=== PATIENT | female | born 1975 | race American Indian/Alaskan Native ===

== ENCOUNTER 2017-04-26 18:14 | Emergency (ER) | payer SELFPAY ==
[2017-04-26] MEDS ORDERED: TYLENOL #3 PO ONE (22:41)
[2017-04-26] MEDS ORDERED: TORADOL IM ONE (22:41)
--- NOTE | 2017-04-26 23:58 | Emergency Department Report ---
ED ENT HPI - General Chief complaint: Dental/Oral Stated complaint: SWOLLEN MOUTH, PAIN IN NECK Source: patient Mode of arrival: Ambulatory Limitations: No Limitations - History of Present Illness Initial comments: 42 year old female presents to ED with left sided jaw/tooth pain x 2-3 days. patient is stable, neurologically intact and in no acute distress. patient denies history of DM. patient states LMP was yesterday 04/25/2017. MD complaint: tooth pain -: Sudden, days(s) (3) 1 - dental pain Severity: mild Quality: sharp Consistency: constant Worsens with: eating Context- Dental: poor dental care Associated Symptoms: gum swelling, toothache. denies: fever, cough, pain with swallowing, sore throat - Related Data Previous Rx's Medication Instructions Recorded Last Taken Type ALPRAZolam [Xanax TAB] 0.5 mg PO Q8H PRN #20 tablet 05/18/13 Unknown Rx Famotidine [Pepcid] 20 mg PO BID #40 tablet 09/09/15 Unknown Rx Ferrous Sulfate [Feosol] 325 mg PO BID #90 tablet 09/09/15 Unknown Rx Meclizine [Antivert] 25 mg PO TID PRN #20 tablet 09/09/15 Unknown Rx Promethazine [Phenergan TAB] 25 mg PO Q6HR PRN #20 tab 09/09/15 Unknown Rx Amoxicillin 500 mg PO BID #14 capsule 04/26/17 Unknown Rx Naproxen [Naprosyn] 500 mg PO BID #14 tablet 04/26/17 Unknown Rx Allergies Allergy/AdvReac Type Severity Reaction Status Date / Time hydrocodone [Hydrocodone] AdvReac Dizziness Verified 05/16/13 19:22 ED Dental HPI - General Chief complaint: Dental/Oral Stated complaint: SWOLLEN MOUTH, PAIN IN NECK, AND BUMP ON RECTUM Source: patient Mode of arrival: Ambulatory Limitations: No Limitations - Related Data Previous Rx's Medication Instructions Recorded Last Taken Type ALPRAZolam [Xanax TAB] 0.5 mg PO Q8H PRN #20 tablet 05/18/13 Unknown Rx Famotidine [Pepcid] 20 mg PO BID #40 tablet 09/09/15 Unknown Rx Ferrous Sulfate [Feosol] 325 mg PO BID #90 tablet 09/09/15 Unknown Rx Meclizine [Antivert] 25 mg PO TID PRN #20 tablet 09/09/15 Unknown Rx Promethazine [Phenergan TAB] 25 mg PO Q6HR PRN #20 tab 09/09/15 Unknown Rx Amoxicillin 500 mg PO BID #14 capsule 04/26/17 Unknown Rx Naproxen [Naprosyn] 500 mg PO BID #14 tablet 04/26/17 Unknown Rx Allergies Allergy/AdvReac Type Severity Reaction Status Date / Time hydrocodone [Hydrocodone] AdvReac Dizziness Verified 05/16/13 19:22 ED Review of Systems ROS: Stated complaint: SWOLLEN MOUTH, PAIN IN NECK, AND BUMP ON RECTUM Other details as noted in HPI Constitutional: denies: chills, fever Eyes: denies: eye pain, eye discharge, vision change ENT: dental pain. denies: ear pain, throat pain Respiratory: denies: cough, shortness of breath, wheezing Cardiovascular: denies: chest pain, palpitations Endocrine: no symptoms reported Gastrointestinal: denies: abdominal pain, nausea, diarrhea Genitourinary: denies: urgency, dysuria, discharge Musculoskeletal: denies: back pain, joint swelling, arthralgia Skin: denies: rash, lesions Neurological: denies: headache, weakness, numbness, paresthesias, confusion, abnormal gait, vertigo Psychiatric: denies: anxiety, depression Hematological/Lymphatic: denies: easy bleeding, easy bruising ED Past Medical Hx - Past Medical History Previous Medical History?: Yes Hx Hypertension: Yes Additional medical history: fibroids - Surgical History Past Surgical History?: Yes Additional Surgical History: section x4 - Social History Smoking Status: Current Every Day Smoker Substance Use Type: Alcohol - Medications Home Medications: Home Medications Medication Instructions Recorded Confirmed Last Taken Type ALPRAZolam [Xanax TAB] 0.5 mg PO Q8H PRN #20 tablet 05/18/13 Unknown Rx Famotidine [Pepcid] 20 mg PO BID #40 tablet 09/09/15 Unknown Rx Ferrous Sulfate [Feosol] 325 mg PO BID #90 tablet 09/09/15 Unknown Rx Meclizine [Antivert] 25 mg PO TID PRN #20 tablet 09/09/15 Unknown Rx Promethazine [Phenergan TAB] 25 mg PO Q6HR PRN #20 tab 09/09/15 Unknown Rx Amoxicillin 500 mg PO BID #14 capsule 04/26/17 Unknown Rx Naproxen [Naprosyn] 500 mg PO BID #14 tablet 04/26/17 Unknown Rx ED Physical Exam - General Limitations: No Limitations General appearance: alert, in no apparent distress - Head Head exam: Present: atraumatic, normocephalic - Eye Eye exam: Present: normal appearance - ENT ENT exam: Present: mucous membranes moist, other (dental caries present in left lower teeth with mild gum swelling. no abscess present, mild tenderness to left jaw) - Neck Neck exam: Present: normal inspection. Absent: lymphadenopathy - Respiratory Respiratory exam: Present: normal lung sounds bilaterally. Absent: respiratory distress, wheezes, rales, rhonchi - Cardiovascular Cardiovascular Exam: Present: regular rate, normal rhythm. Absent: systolic murmur, diastolic murmur, rubs, gallop - GI/Abdominal GI/Abdominal exam: Present: soft, normal bowel sounds. Absent: distended, tenderness, guarding - Extremities Exam Extremities exam: Present: normal inspection, full ROM - Back Exam Back exam: Present: normal inspection, full ROM - Neurological Exam Neurological exam: Present: alert, oriented X3, normal gait - Psychiatric Psychiatric exam: Present: normal affect, normal mood - Skin Skin exam: Present: warm, dry, intact, normal color. Absent: rash ED Course Vital Signs 04/26/17 04/26/17 04/26/17 18:52 21:40 23:02 Temperature 98.3 F 98.7 F Pulse Rate 86 77 Respiratory 20 18 18 Rate Blood Pressure 157/103 Blood Pressure 166/100 [Left] O2 Sat by Pulse 100 100 Oximetry 04/26/17 04/27/17 23:03 00:11 Temperature Pulse Rate 72 Respiratory 18 18 Rate Blood Pressure Blood Pressure 147/88 [Left] O2 Sat by Pulse 98 Oximetry ED Medical Decision Making - Medical Decision Making 42 year old female presents to ED with left sided jaw pain x2-3 days. patient has decreased pain after medication during ED visit. patient will be referred to [facility] dental [facility] and given RX for PO antibiotics and NSAIDS. patient is stable, neurologically intact and in no acute distress. Critical care attestation.: If time is entered above; I have spent that time in minutes in the direct care of this critically ill patient, excluding procedure time. ED Disposition Clinical Impression: Pain, dental, Dental caries, Gingivitis Disposition: TO HOME OR SELFCARE Is pt being admited?: No Does the pt Need Aspirin: No Condition: Stable Instructions: Dental Caries (ED), Toothache (ED) Prescriptions: Amoxicillin 500 mg PO BID #14 capsule Naproxen [Naprosyn] 500 mg PO BID #14 tablet Referrals: [facility] [Outside] - 2-3 Days PRIMARY CARE,MD [Primary Care Provider] - 3-5 Days Forms: Work/School Release Form(ED)
[2017-04-27 00:12] VITALS: BP 147/88
== END 2017-04-27 00:11 | disposition home or self-care (01) ==
LOC: ED 18:14
DX: K02.9 Dental caries, unspecified (principal); K05.10 Chronic gingivitis, plaque induced; I10 Essential (primary) hypertension; F17.210 Nicotine dependence, cigarettes, uncomplicated; Z88.6 Allergy status to analgesic agent
CPT/HCPCS: 96372; 99282; J1885

== ENCOUNTER 2017-11-08 02:35 | Emergency (ER) | payer MEDICAID ==
[2017-11-08 03:24] LABS: Basophils % (Auto) 0.3 % (0.0-1.8); Eosinophils # (Auto) 0.3 K/mm3 (0.0-0.4); Eosinophils % (Auto) 2.9 % (0.0-4.3); Hemoglobin 8.6 gm/dl (10.1-14.3); Lymphocytes # (Auto) 3.4 K/mm3 (1.2-5.4); Lymphocytes % (Auto) 28.7 % (13.4-35.0); Mean Corpuscular HGB Conc 30 % (30-34); Mean Corpuscular Hemoglobin 20 pg (28-32); Mean Corpuscular Volume 68 fl (79-97); Monocytes # (Auto) 0.7 K/mm3 (0.0-0.8); Monocytes % (Auto) 5.6 % (0.0-7.3); Platelet Count 443 K/mm3 (140-440); Red Blood Count 4.26 M/mm3 (3.65-5.03); Red Cell Distribution Width 21.1 % (13.2-15.2)
[2017-11-08 03:31] LABS: Bilirubin,Urine NEG (Negative); Blood,Urine LG (Negative); Color,Urine Red (Yellow); Mucus,Urine 1+ /HPF; Urobilinogen,Urine < 2.0 mg/dL (<2.0)
[2017-11-08 03:33] LABS: RBC,Urine > 182.0 /HPF (0.0-6.0)
[2017-11-08 03:40] LABS: Albumin 3.7 g/dL (3.9-5); Calcium 8.5 mg/dL (8.4-10.2)
[2017-11-08] MEDS ORDERED: ANTIVERT PO ONE (06:22)
[2017-11-08] MEDS ORDERED: MACROBID PO ONE (06:22)
--- NOTE | 2017-11-08 06:53 | XRay Report ---
FINAL REPORT EXAM: XR ABDOMEN 2V HISTORY: Abd pain TECHNIQUE: Three views of the abdomen pelvis were obtained. FINDINGS: The bowel gas pattern is normal. There are phleboliths in the pelvis. The lung bases are clear. The bones and soft tissues otherwise well maintained. IMPRESSION: No acute process identified.
--- NOTE | 2017-11-08 06:59 | Cat Scan Report ---
FINAL REPORT EXAM: CT HEAD/BRAIN WO CON HISTORY: dizziness TECHNIQUE: Routine axial imaging was obtained of the brain without IV contrast. Comparison is made to the study 01/16/2013. FINDINGS: There is no evidence of acute stroke or hemorrhage. The ventricular system is appropriate in size and is symmetric. The basal cisterns appear normal. The visualized sinuses are clear. The mastoid air cells are well pneumatized IMPRESSION: Within normal limits.
--- NOTE | 2017-11-08 07:05 | Emergency Department Report ---
HPI - General Chief Complaint: Abdominal Pain Time Seen by Provider: 11/08/17 06:09 - HPI HPI: 42-year-old female presents to the emergency department with a few different complaints. The patient says that she's been having some nonspecific lightheadedness and vertigo like symptoms over the past 3 weeks. She denies any facial asymmetry, slurred speech, vision change, headache or any other neurological deficits. She also complains of acute on chronic generalized abdominal pain. She says that this would be the third visit to the emergency department for her abdominal pain. She denies any problems with bowel or bladder, vaginal bleeding or discharge or dysuria. She has not taken anything for her symptoms prior presentation. She does have a history of anemia but is unsure of the source of the anemia and denies any bleeding. Her primary care physician is through [facility] and she says that she saw them regarding the lightheadedness and weakness and says that the PCP associated with her anemia. No recent travel or sick contacts at home. She has a past medical history of hypertension, fibroids. ED Past Medical Hx - Past Medical History Hx Hypertension: Yes Additional medical history: fibroids, MORBID OBESITY - Surgical History Additional Surgical History: section x4, TUBAL LIGATION - Social History Smoking Status: Current Every Day Smoker Substance Use Type: None - Medications Home Medications: Home Medications Medication Instructions Recorded Confirmed Last Taken Type ALPRAZolam [Xanax TAB] 0.5 mg PO Q8H PRN #20 tablet 05/18/13 Unknown Rx Famotidine [Pepcid] 20 mg PO BID #40 tablet 09/09/15 Unknown Rx Ferrous Sulfate [Feosol] 325 mg PO BID #90 tablet 09/09/15 Unknown Rx Promethazine [Phenergan TAB] 25 mg PO Q6HR PRN #20 tab 09/09/15 Unknown Rx Amoxicillin 500 mg PO BID #14 capsule 04/26/17 Unknown Rx Naproxen [Naprosyn] 500 mg PO BID #14 tablet 04/26/17 Unknown Rx Meclizine [Antivert] 25 mg PO TID PRN #20 tablet 11/08/17 Unknown Rx Nitrofurantoin Monohyd/M-Cryst 100 mg PO BID #14 capsule 11/08/17 Unknown Rx [Macrobid 100 mg Capsule] ED Review of Systems ROS: Stated complaint: ABD PAIN Other details as noted in HPI Comment: All other systems reviewed and negative Constitutional: weakness. denies: fever Eyes: denies: eye pain, eye discharge, vision change ENT: denies: ear pain, throat pain Respiratory: denies: cough, shortness of breath, wheezing Cardiovascular: denies: chest pain, palpitations Gastrointestinal: abdominal pain. denies: vomiting Genitourinary: denies: urgency, dysuria, discharge Musculoskeletal: denies: back pain, joint swelling, arthralgia Skin: denies: rash, lesions Neurological: vertigo, other (dizziness). denies: headache Physical Exam - Physical Exam Vital Signs: Vital Signs 11/08/17 11/08/17 02:38 05:59 Temperature 98.2 F Pulse Rate 89 77 Respiratory 18 16 Rate Blood Pressure 141/89 Blood Pressure 141/88 [Left] O2 Sat by Pulse 99 99 Oximetry Physical Exam: GENERAL: The patient is well-developed well-nourished. HENT: Normocephalic. Atraumatic. Patient has moist mucous membranes. EYES: Extraocular motions are intact. Pupils equal reactive to light bilaterally. There is fatigable horizontal nystagmus. NECK: Supple. Trachea is midline. CHEST/LUNGS: Clear to auscultation. There is no respiratory distress noted. HEART/CARDIOVASCULAR: Regular. There is no tachycardia. There is no murmur. ABDOMEN: Abdomen is soft. Abdominal pain is not reproducible to palpation. Patient has normal bowel sounds. There is no abdominal distention. SKIN: Skin is warm and dry. NEURO: The patient is awake, alert, and oriented. The patient is cooperative. The patient has no focal neurologic deficits. The patient has normal speech and gait. Cranial nerves II through XII grossly intact. MUSCULOSKELETAL: There is no tenderness or deformity. There is no limitation range of motion. There is no evidence of acute injury. ED Course Vital Signs 11/08/17 11/08/17 02:38 05:59 Temperature 98.2 F Pulse Rate 89 77 Respiratory 18 16 Rate Blood Pressure 141/89 Blood Pressure 141/88 [Left] O2 Sat by Pulse 99 99 Oximetry ED Medical Decision Making - Lab Data Result diagrams: 11/08/17 02:54 11/08/17 02:54 - EKG Data -: EKG Interpreted by Me EKG shows normal: sinus rhythm, axis, intervals, QRS complexes, ST-T waves Rate: normal - EKG Data When compared to previous EKG there are: previous EKG unavailable Interpretation: normal EKG - Radiology Data Radiology results: report reviewed, image reviewed interpreted by me: Abdominal x-ray shows nonspecific nonobstructive bowel gas. EXAM: CT HEAD/BRAIN WO CON HISTORY: dizziness TECHNIQUE: Routine axial imaging was obtained of the brain without IV contrast. Comparison is made to the study 01/16/2013. FINDINGS: There is no evidence of acute stroke or hemorrhage. The ventricular system is appropriate in size and is symmetric. The basal cisterns appear normal. The visualized sinuses are clear. The mastoid air cells are well pneumatized IMPRESSION: Within normal limits. Transcribed By: RB Dictated By: IMTIAZ CARLSON MD Electronically Authenticated By: IMTIAZ CARLSON MD Signed Date/Time: 11/08/17 0655 - Medical Decision Making Patient's labs show a very mild urinary tract infection, anemia with hemoglobin of 8.2. On physical exam the patient does not have any focal, motor or sensory deficits in her cranial nerves are intact. Abdominal x-ray shows nonspecific nonobstructive bowel gas. CT of the head without contrast does not show any bleed, shift, mass or any other acute process. The patient was given a Macrobid for her urinary tract infection and a meclizine for her vertigo. EKG is not showing any signs of ST elevation NC or dysrhythmia. The patient was reevaluated multiple times over multiple hours and is feeling improved. Prior to discharge, she was seen ambulatory in the emergency department and appears stable and says that her dizziness has resolved. Patient per se for discharge home at this time. She has good follow-up with primary care and was given a referral for gastroenterology. She will return to the ER with any worsening of her symptoms or any acute distress. - Differential Diagnosis vertigo, TIA, hypoglycemia, hypothyroidism, dysrhythmia Critical Care Time: No Critical care attestation.: If time is entered above; I have spent that time in minutes in the direct care of this critically ill patient, excluding procedure time. ED Disposition Clinical Impression: Dizziness, Vertigo UTI (urinary tract infection) Qualifiers: Urinary tract infection type: acute cystitis Hematuria presence: without hematuria Qualified Code(s): N30.00 - Acute cystitis without hematuria Abdominal pain Qualifiers: Abdominal location: generalized Qualified Code(s): R10.84 - Generalized abdominal pain Disposition: TO HOME OR SELFCARE Is pt being admited?: No Condition: Stable Instructions: Urinary Tract Infection in Women (ED), Vertigo (ED), Abdominal Pain (ED), Dizziness (ED) Additional Instructions: Please follow up with your primary care physician in the next few days. I have given you a referral for a local crew team member, Dr. Shields, to follow up regarding your recurring abdominal pains. Take the antibiotics as prescribed. I have also prescribed you a medication, meclizine/Antivert, to be taken as needed for vertigo symptoms. Return to the emergency Department with any worsening of your symptoms or any acute distress. Prescriptions: Meclizine [Antivert] 25 mg PO TID PRN #20 tablet PRN Reason: Vertigo Nitrofurantoin Monohyd/M-Cryst [Macrobid 100 mg Capsule] 100 mg PO BID #14 capsule Referrals: PRIMARY CARE, [Primary Care Provider] - 3-5 Days BENITO SHIELDS MD [Staff Physician] - 3-5 Days Time of Disposition: 08:48
[2017-11-08 08:21] VITALS: BP 106/51
== END 2017-11-08 09:13 | disposition home or self-care (01) ==
LOC: ED 02:35
DX: N39.0 Urinary tract infection, site not specified (principal); I10 Essential (primary) hypertension; F17.200 Nicotine dependence, unspecified, uncomplicated
CPT/HCPCS: 36415; 70450; 74019; 80053; 81001; 83690; 84443; 84484; 84703; 85025; 93005; 93010; 99284

== ENCOUNTER 2018-05-25 22:04 | Emergency (ER) | payer SELFPAY ==
[2018-05-25 23:57] LABS: Basophils # (Auto) 0.1 K/mm3 (0.0-0.1); Basophils % (Auto) 0.5 % (0.0-1.8); Eosinophils # (Auto) 0.5 K/mm3 (0.0-0.4); Lymphocytes # (Auto) 3.6 K/mm3 (1.2-5.4); Mean Corpuscular HGB Conc 29 % (30-34); Monocytes # (Auto) 0.8 K/mm3 (0.0-0.8); Monocytes % (Auto) 5.8 % (0.0-7.3); Platelet Count 503 K/mm3 (140-440); Red Blood Count 4.03 M/mm3 (3.65-5.03)
[2018-05-26 00:07] LABS: Hemoglobin 7.3 gm/dl (10.1-14.3); Mean Corpuscular Hemoglobin 18 pg (28-32); Mean Corpuscular Volume 62 fl (79-97); Red Cell Distribution Width 21.5 % (13.2-15.2)
[2018-05-26 00:11] LABS: Albumin 3.8 g/dL (3.9-5); Calcium 8.9 mg/dL (8.4-10.2)
[2018-05-26 00:39] LABS: Bilirubin,Urine NEG (Negative); Blood,Urine SM (Negative); Color,Urine Yellow (Yellow); Mucus,Urine FEW /HPF; Urobilinogen,Urine < 2.0 mg/dL (<2.0)
--- NOTE | 2018-05-26 01:34 | Emergency Department Report ---
ED Dizziness HPI - General Chief Complaint: Dizziness Stated Complaint: DIZZY/FATIGUE Time Seen by Provider: 05/26/18 01:33 Source: patient Mode of arrival: Ambulatory Limitations: No Limitations - History of Present Illness Initial Comments: Patient is a poor historian. She c/o Cough, abdominal pain and dizziness. MD Complaint: dizziness -: Gradual Timing: gradual onset Description: lightheadedness History of Same: Yes History of Trauma: No Severity: mild Improves With: nothing Worsens With: nothing Associated Symptoms: cough - Related Data Previous Rx's Medication Instructions Recorded Last Taken Type ALPRAZolam [Xanax TAB] 0.5 mg PO Q8H PRN #20 tablet 05/18/13 Unknown Rx Famotidine [Pepcid] 20 mg PO BID #40 tablet 09/09/15 Unknown Rx Ferrous Sulfate [Feosol] 325 mg PO BID #90 tablet 09/09/15 Unknown Rx Promethazine [Phenergan TAB] 25 mg PO Q6HR PRN #20 tab 09/09/15 Unknown Rx Amoxicillin 500 mg PO BID #14 capsule 04/26/17 Unknown Rx Naproxen [Naprosyn] 500 mg PO BID #14 tablet 04/26/17 Unknown Rx Meclizine [Antivert] 25 mg PO TID PRN #20 tablet 11/08/17 Unknown Rx Nitrofurantoin Monohyd/M-Cryst 100 mg PO BID #14 capsule 11/08/17 Unknown Rx [Macrobid 100 mg Capsule] Amoxicillin/Potassium Clav 1 each PO BID #20 tablet 05/26/18 Unknown Rx [Augmentin 875-125 Tablet] Allergies Allergy/AdvReac Type Severity Reaction Status Date / Time hydrocodone [Hydrocodone] AdvReac Dizziness Verified 05/16/13 19:22 ED Review of Systems ROS: Stated complaint: DIZZY/FATIGUE Other details as noted in HPI Comment: All other systems reviewed and negative Constitutional: denies: chills, fever Eyes: denies: eye pain ENT: denies: ear pain Respiratory: cough. denies: shortness of breath Cardiovascular: denies: chest pain, palpitations Endocrine: no symptoms reported Gastrointestinal: abdominal pain. denies: nausea, vomiting, diarrhea Genitourinary: denies: urgency, dysuria, frequency Musculoskeletal: denies: back pain, joint swelling Skin: denies: rash, lesions Neurological: denies: headache, weakness, numbness, paresthesias, confusion, abnormal gait Psychiatric: denies: anxiety, depression Hematological/Lymphatic: denies: easy bleeding, easy bruising ED Past Medical Hx - Past Medical History Previous Medical History?: Yes Hx Hypertension: Yes Additional medical history: fibroids, MORBID OBESITY - Surgical History Past Surgical History?: Yes Additional Surgical History: section x4, TUBAL LIGATION - Social History Smoking Status: Current Every Day Smoker Substance Use Type: None - Medications Home Medications: Home Medications Medication Instructions Recorded Confirmed Last Taken Type ALPRAZolam [Xanax TAB] 0.5 mg PO Q8H PRN #20 tablet 05/18/13 Unknown Rx Famotidine [Pepcid] 20 mg PO BID #40 tablet 09/09/15 Unknown Rx Ferrous Sulfate [Feosol] 325 mg PO BID #90 tablet 09/09/15 Unknown Rx Promethazine [Phenergan TAB] 25 mg PO Q6HR PRN #20 tab 09/09/15 Unknown Rx Amoxicillin 500 mg PO BID #14 capsule 04/26/17 Unknown Rx Naproxen [Naprosyn] 500 mg PO BID #14 tablet 04/26/17 Unknown Rx Meclizine [Antivert] 25 mg PO TID PRN #20 tablet 11/08/17 Unknown Rx Nitrofurantoin Monohyd/M-Cryst 100 mg PO BID #14 capsule 11/08/17 Unknown Rx [Macrobid 100 mg Capsule] Amoxicillin/Potassium Clav 1 each PO BID #20 tablet 05/26/18 Unknown Rx [Augmentin 875-125 Tablet] ED Physical Exam - General Limitations: No Limitations General appearance: alert, in no apparent distress, obese - Head Head exam: Present: atraumatic, normocephalic, normal inspection - Eye Eye exam: Present: normal appearance, PERRL, EOMI Pupils: Present: normal accommodation - ENT ENT exam: Present: normal exam, normal orophraynx, mucous membranes moist - Neck Neck exam: Present: normal inspection, full ROM. Absent: tenderness - Respiratory Respiratory exam: Present: normal lung sounds bilaterally. Absent: respiratory distress, wheezes, rales, rhonchi, stridor - Cardiovascular Cardiovascular Exam: Present: regular rate, normal rhythm, normal heart sounds - GI/Abdominal GI/Abdominal exam: Present: soft, normal bowel sounds. Absent: distended, tenderness, guarding, rebound, rigid - Extremities Exam Extremities exam: Present: normal inspection, full ROM, normal capillary refill - Back Exam Back exam: Present: normal inspection, full ROM. Absent: tenderness - Neurological Exam Neurological exam: Present: alert, oriented X3, CN II-XII intact - Psychiatric Psychiatric exam: Present: normal affect, normal mood - Skin Skin exam: Present: warm, dry, intact, normal color. Absent: rash ED Course Vital Signs 05/25/18 22:39 Temperature 99.4 F Pulse Rate 90 Respiratory 18 Rate Blood Pressure 129/73 O2 Sat by Pulse 100 Oximetry ED Medical Decision Making - Lab Data Result diagrams: 05/25/18 23:46 05/25/18 23:46 Lab Results 05/25/18 05/25/18 05/25/18 Range/Units 23:46 23:46 23:46 WBC 13.0 H (4.5-11.0) K/mm3 RBC 4.03 (3.65-5.03) M/mm3 Hgb 7.3 L (10.1-14.3) gm/dl Hct 25.0 L (30.3-42.9) % MCV 62 L (79-97) fl MCH 18 L (28-32) pg MCHC 29 L (30-34) % RDW 21.5 H (13.2-15.2) % Plt Count 503 H (140-440) K/mm3 Lymph % (Auto) 28.0 (13.4-35.0) % [place] % (Auto) 5.8 (0.0-7.3) % Eos % (Auto) 4.0 (0.0-4.3) % Baso % (Auto) 0.5 (0.0-1.8) % Lymph # 3.6 (1.2-5.4) K/mm3 [place] # 0.8 (0.0-0.8) K/mm3 Eos # 0.5 H (0.0-0.4) K/mm3 Baso # 0.1 (0.0-0.1) K/mm3 Seg Neutrophils % 61.7 (40.0-70.0) % Seg Neutrophils # 8.0 H (1.8-7.7) K/mm3 Sodium 135 L (137-145) mmol/L Potassium 4.0 (3.6-5.0) mmol/L Chloride 105.1 (98-107) mmol/L Carbon Dioxide 22 (22-30) mmol/L Anion Gap 12 mmol/L BUN 13 (7-17) mg/dL Creatinine 1.3 H (0.7-1.2) mg/dL Estimated GFR 55 ml/min BUN/Creatinine Ratio 10 % Glucose 110 H (65-100) mg/dL Lactic Acid (0.7-2.0) mmol/L Calcium 8.9 (8.4-10.2) mg/dL Total Bilirubin 0.20 (0.1-1.2) mg/dL AST 19 (5-40) units/L ALT 5 L (7-56) units/L Alkaline Phosphatase 66 (35-129) units/L Total Protein 9.3 H (6.3-8.2) g/dL Albumin 3.8 L (3.9-5) g/dL Albumin/Globulin Ratio 0.7 % Lipase (13-60) units/L HCG, Qual Negative (Negative) Urine Color (Yellow) Urine Turbidity (Clear) Urine pH (5.0-7.0) Ur Specific [place] (1.003-1.030) Urine Protein (Negative) mg/dL Urine Glucose (UA) (Negative) mg/dL Urine Ketones (Negative) mg/dL Urine Blood (Negative) Urine Nitrite (Negative) Urine Bilirubin (Negative) Urine Urobilinogen (<2.0) mg/dL Ur Leukocyte Esterase (Negative) Urine WBC (Auto) (0.0-6.0) /HPF Urine RBC (Auto) (0.0-6.0) /HPF U Epithel Cells (Auto) (0-13.0) /HPF Urine Mucus /HPF 05/25/18 05/26/18 05/26/18 Range/Units Unknown 02:58 02:58 WBC (4.5-11.0) K/mm3 RBC (3.65-5.03) M/mm3 Hgb (10.1-14.3) gm/dl Hct (30.3-42.9) % MCV (79-97) fl MCH (28-32) pg MCHC (30-34) % RDW (13.2-15.2) % Plt Count (140-440) K/mm3 Lymph % (Auto) (13.4-35.0) % [place] % (Auto) (0.0-7.3) % Eos % (Auto) (0.0-4.3) % Baso % (Auto) (0.0-1.8) % Lymph # (1.2-5.4) K/mm3 [place] # (0.0-0.8) K/mm3 Eos # (0.0-0.4) K/mm3 Baso # (0.0-0.1) K/mm3 Seg Neutrophils % (40.0-70.0) % Seg Neutrophils # (1.8-7.7) K/mm3 Sodium (137-145) mmol/L Potassium (3.6-5.0) mmol/L Chloride (98-107) mmol/L Carbon Dioxide (22-30) mmol/L Anion Gap mmol/L BUN (7-17) mg/dL Creatinine (0.7-1.2) mg/dL Estimated GFR ml/min BUN/Creatinine Ratio % Glucose (65-100) mg/dL Lactic Acid 0.90 (0.7-2.0) mmol/L Calcium (8.4-10.2) mg/dL Total Bilirubin (0.1-1.2) mg/dL AST (5-40) units/L ALT (7-56) units/L Alkaline Phosphatase (35-129) units/L Total Protein (6.3-8.2) g/dL Albumin (3.9-5) g/dL Albumin/Globulin Ratio % Lipase 27 (13-60) units/L HCG, Qual (Negative) Urine Color Yellow (Yellow) Urine Turbidity Slightly-cloudy (Clear) Urine pH 5.0 (5.0-7.0) Ur Specific [place] 1.016 (1.003-1.030) Urine Protein 100 mg/dl (Negative) mg/dL Urine Glucose (UA) Neg (Negative) mg/dL Urine Ketones Neg (Negative) mg/dL Urine Blood Sm (Negative) Urine Nitrite Neg (Negative) Urine Bilirubin Neg (Negative) Urine Urobilinogen < 2.0 (<2.0) mg/dL Ur Leukocyte Esterase Tr (Negative) Urine WBC (Auto) 5.0 (0.0-6.0) /HPF Urine RBC (Auto) 5.0 (0.0-6.0) /HPF U Epithel Cells (Auto) 12.0 (0-13.0) /HPF Urine Mucus Few /HPF - EKG Data -: EKG Interpreted by Me EKG shows normal: sinus rhythm Rate: normal (87) - EKG Data When compared to previous EKG there are: previous EKG unavailable Interpretation: normal EKG 05/26/18 03:46 No STEMI. - Radiology Data Radiology results: report reviewed, image reviewed CXR, CT head, abdomen and pelvis are negative. - Medical Decision Making Bronchitis. Dizziness. Will discharge home to follow up with her primary doctor. Critical care attestation.: If time is entered above; I have spent that time in minutes in the direct care of this critically ill patient, excluding procedure time. ED Disposition Clinical Impression: Dizziness Acute bronchitis Qualifiers: Bronchitis organism: unspecified organism Qualified Code(s): J20.9 - Acute bronchitis, unspecified Obesity Qualifiers: Obesity type: unspecified obesity type Obesity classification: adult class 3 ( BMI >= 40) Serious obesity comorbidity presence: unspecified whether serious comorbidity present Body mass index: BMI 45.0-49.9 Qualified Code(s): E66.01 - Morbid (severe) obesity due to excess calories; Z68.42 - Body mass index (BMI) 45.0-49.9, adult Disposition: TO HOME OR SELFCARE Is pt being admited?: No Does the pt Need Aspirin: No Condition: Stable Instructions: Acute Bronchitis (ED) Additional Instructions: Please follow up with your primary doctor or Dr Escobar on Monday. Return to the ED if your condition worsens. Prescriptions: Amoxicillin/Potassium Clav [Augmentin 875-125 Tablet] 1 each PO BID #20 tablet Referrals: PRIMARY CARE, [Primary Care Provider] - 3-5 Days Time of Disposition: 04:19
[2018-05-26] MEDS ORDERED: NACL 0.9% 1000 ML 1,000 ML IV ONE ×2 (02:24→02:26)
--- NOTE | 2018-05-26 03:17 | Cat Scan Report ---
FINAL REPORT PROCEDURE: CT HEAD/BRAIN WO CON TECHNIQUE: Computerized tomography of the head was performed without contrast material. HISTORY: Dizziness COMPARISON: No prior studies are available for comparison. FINDINGS: Skull and scalp: Normal. Paranasal sinuses: Normal. Ventricles and subarachnoid spaces: Normal. Cerebrum: No evidence of hemorrhage, acute infarction or mass . Cerebellum and brainstem: No evidence of hemorrhage, acute infarction or mass. Vasculature: Normal. Comments: None. IMPRESSION: Normal Examination
--- NOTE | 2018-05-26 03:25 | Cat Scan Report ---
FINAL REPORT PROCEDURE: CT ABDOMEN PELVIS WO CON TECHNIQUE: Computerized axial tomography of the abdomen and pelvis was performed without intravenous contrast. This study is performed without intravascular contrast material and its sensitivity for abdominal and pelvic pathology, including neoplasms, inflammation, abscess, free fluid, thrombosis, arterial dissection and infarction, is reduced compared with a contrast enhanced study. HISTORY: abdominal pain COMPARISON: No prior studies are available for comparison. FINDINGS: Visualized lower thorax: No significant abnormality. Liver: Normal size and attenuation. Spleen: Normal size and attenuation. Gallbladder and biliary system: Normal. Pancreas: Normal. Adrenals: Normal. Kidneys: There are no kidney stones. There is no hydronephrosis.. GI tract: There is no bowel obstruction, colitis or enteritis. There are diverticula of the sigmoid and left colon. The appendix is normal.. Lymph nodes and mesentery: Normal. Vasculature: Normal. Bladder: Normal. Reproductive organs: There is a mass in the uterine fundus measuring 12 centimeter suggesting a fibroid.. Peritoneum: There is no ascites or free air, abscess or adenopathy.. Musculoskeletal structures: No significant abnormality. Other: None. IMPRESSION: There are no kidney stones. There is no hydronephrosis. There is no bowel obstruction, colitis or enteritis. There are diverticula of the sigmoid and left colon. The appendix is normal.. There is a mass in the uterine fundus measuring 12 centimeter suggesting a fibroid. There is no ascites or free air, abscess or adenopathy. .
--- NOTE | 2018-05-26 03:37 | XRay Report ---
FINAL REPORT PROCEDURE: XR CHEST ROUTINE 2V TECHNIQUE: PA and lateral chest radiographs were obtained. CPT 74435 HISTORY: cough COMPARISON: No prior studies are available for comparison. FINDINGS: Heart: Normal. Mediastinum/Vessels: Normal. Lungs/Pleural space: There are no infiltrates, effusions or pneumothoraces.. Bony thorax: No acute osseous abnormality. Other: IMPRESSION: Normal examination.
[2018-05-26] MEDS ORDERED: AUGMENTIN 875 MG PO ONE (04:09)
[2018-05-26 06:22] VITALS: BP 145/94
== END 2018-05-26 06:17 | disposition home or self-care (01) ==
LOC: ED 22:04
DX: J20.9 Acute bronchitis, unspecified (principal); R42 Dizziness and giddiness; R10.9 Unspecified abdominal pain; E66.01 Morbid (severe) obesity due to excess calories; F17.200 Nicotine dependence, unspecified, uncomplicated; I10 Essential (primary) hypertension; Z68.42 Body mass index [BMI] 45.0-49.9, adult; Z98.51 Tubal ligation status; Z88.5 Allergy status to narcotic agent
CPT/HCPCS: 36415; 70450; 71046; 74176; 80053; 81001; 82140; 83690; 84703; 85025; 87040; 93005; 93010; 96360; 96361; 99284; J7030